=== PATIENT | male | born 2000 | race Caucasian/White ===

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

== ENCOUNTER 2019-11-03 17:54 | Emergency (ER) | payer MEDICAID, OTHER ==
[~2019-11-03] VITALS: Ht 180.3 cm; Wt 69.6 kg
[2019-11-03] MEDS ORDERED: normal saline 1000ML IV soln IVB ONE (18:00)
[2019-11-03] MEDS ORDERED: ondansetron/PF 4mg/2ml inj IV ONE (18:00)
[2019-11-03] MEDS: morphine 4 MG/ML inj SYRINge IV PRN ×2 (18:19→20:33)
[2019-11-03 18:28] LABS: BASOPHILS # (AUTO) 0.1 X10'3 (0-0.2); BASOPHILS % (AUTO) 0.5 % (0-1); EOSINOPHILS # (AUTO) 0.1 X10'3 (0-0.9); HEMATOCRIT 45.9 % (42.0-52.0); LYMPHOCYTES # (AUTO) 3.7 X10'3 (1.1-4.8); LYMPHOCYTES % (AUTO) 27.4 % (21-51); MEAN CORPUSCULAR HGB CONC 34.9 g/dL (33.0-36.5); MEAN PLATELET VOLUME 9.2 FL (7.4-10.4); MONOCYTES # (AUTO) 0.8 X10'3 (0-0.9); MONOCYTES % (AUTO) 5.7 % (2-12); NEUTROPHILS # (AUTO) 8.8 X10'3 (1.8-7.7); NEUTROPHILS % (AUTO) 65.4 % (42-75); PLATELET COUNT 310 X10'3 (140-440); RED BLOOD COUNT 5.33 X10'6 (4.70-6.10); RED CELL DISTRIBUTION WIDTH 13.4 % (11.5-14.5); WHITE BLOOD COUNT 13.4 X10'3 (4.5-11.0)
[2019-11-03] MEDS ORDERED: ketorolac trometh. 30mg/ml inj. IV ONE (19:20)
[2019-11-03 20:43] VITALS: BP 139/80
== END 2019-11-03 20:47 | disposition home or self-care (01) ==
LOC: ER 17:55
DX: S06.0X1A Concussion with loss of consciousness of 30 minutes or less, initial encounter (principal); S52.611A Displaced fracture of right ulna styloid process, initial encounter for closed fracture; S52.511A Displaced fracture of right radial styloid process, initial encounter for closed fracture; S00.03XA Contusion of scalp, initial encounter; S00.81XA Abrasion of other part of head, initial encounter; S60.512A Abrasion of left hand, initial encounter; S60.511A Abrasion of right hand, initial encounter; R42 Dizziness and giddiness; M25.511 Pain in right shoulder; F17.200 Nicotine dependence, unspecified, uncomplicated; F12.90 Cannabis use, unspecified, uncomplicated; Z98.890 Other specified postprocedural states; V19.9XXA Pedal cyclist (driver) (passenger) injured in unspecified traffic accident, initial encounter; Y93.89 Activity, other specified; Y92.89 Other specified places as the place of occurrence of the external cause; Y99.8 Other external cause status
CPT/HCPCS: 29125; 36415; 70450; 70486; 72125; 73030; 73110; 85025; 85610; 96361; 96374; 96375; 96376; 99291; J1885; J2270; J2405; J7030; 29105

== ENCOUNTER 2019-11-05 13:46 | Emergency (ER) | payer SELFPAY ==
[~2019-11-05] VITALS: Ht 180.3 cm; Wt 65.0 kg
[2019-11-05 14:05] VITALS: BP 150/98
--- NOTE | 2019-11-05 14:16 | NUR ---
[employer], IN TRIAGE 2 TO REPLACE SPLINT
--- NOTE | 2019-11-05 15:43 | NUR ---
patient seen and assessed by provider.
== END 2019-11-05 14:30 | disposition home or self-care (01) ==
LOC: ER 13:47
DX: S62.101D Fracture of unspecified carpal bone, right wrist, subsequent encounter for fracture with routine healing (principal); F17.210 Nicotine dependence, cigarettes, uncomplicated; F12.90 Cannabis use, unspecified, uncomplicated; Z98.890 Other specified postprocedural states; V89.2XXD Person injured in unspecified motor-vehicle accident, traffic, subsequent encounter
CPT/HCPCS: 29125; 99283

== ENCOUNTER 2020-03-12 21:52 | Emergency (ER) | payer MEDICAID, OTHER ==
[~2020-03-12] VITALS: Ht 180.3 cm; Wt 66.8 kg
[2020-03-12 22:05] VITALS: BP 134/90
[2020-03-12] MEDS ORDERED: TETanus/Pertussis (Acell)/Diphther VAC/PF (Tdap-Adult) 0.5ml syringe IMVAC ONE (22:20)
[2020-03-12] MEDS ORDERED: bacitracin 15gm ointment TP ONE (22:20)
[2020-03-12] MEDS ORDERED: morphine 4 MG/ML inj SYRINge IV ONE (22:20)
[2020-03-12] MEDS ORDERED: ondansetron/PF 4mg/2ml inj IV ONE (22:20)
[2020-03-12] MEDS ORDERED: iohexol 300mg/ml 100ml inj. ONE (22:21)
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
--- NOTE | 2020-03-12 22:38 | NUR ---
FAST EXAMINE WAS NEGATIVE PER Annie HUNTER PA, PT TO CT
[2020-03-12 22:59] LABS: BASOPHILS % (AUTO) 0.2 % (0-1); EOSINOPHILS # (AUTO) 0.1 X10'3 (0-0.9); EOSINOPHILS % (AUTO) 0.8 % (0-6); HEMATOCRIT 45.2 % (42.0-52.0); HEMOGLOBIN 15.6 g/dl (14.0-17.9); LYMPHOCYTES # (AUTO) 2.7 X10'3 (1.1-4.8); LYMPHOCYTES % (AUTO) 17.7 % (21-51); MEAN CORPUSCULAR HEMOGLOBIN 30.2 PG (27.0-31.0); MEAN CORPUSCULAR HGB CONC 34.6 g/dL (33.0-36.5); MEAN CORPUSCULAR VOLUME 87.2 FL (78-98); MEAN PLATELET VOLUME 9.3 FL (7.4-10.4); MONOCYTES # (AUTO) 0.7 X10'3 (0-0.9); MONOCYTES % (AUTO) 4.7 % (2-12); NEUTROPHILS # (AUTO) 11.7 X10'3 (1.8-7.7); NEUTROPHILS % (AUTO) 76.6 % (42-75); PLATELET COUNT 274 X10'3 (140-440); RED BLOOD COUNT 5.18 X10'6 (4.70-6.10); RED CELL DISTRIBUTION WIDTH 13.3 % (11.5-14.5); WHITE BLOOD COUNT 15.3 X10'3 (4.5-11.0)
[2020-03-12 23:03] LABS: ALANINE AMINOTRANSFERASE 29 U/L (12-78); ALBUMIN 4.5 G/DL (3.4-5.0); ALBUMIN/GLOBULIN RATIO 1.3 (1.1-1.5); ALKALINE PHOSPHATASE 127 IU/L (20-180); ANION GAP 7 (8-16); ASPARTATE AMINO TRANSFERASE 39 U/L (10-37); BILIRUBIN,TOTAL 0.5 MG/DL (0.1-1.0); BLOOD UREA NITROGEN 18 MG/DL (7-18); CHLORIDE 104 MMOL/L (99-107); GLUCOSE 128 MG/DL (70-104); POTASSIUM 4.4 MMOL/L (3.5-5.1); SODIUM 139 MMOL/L (135-145); TOTAL CARBON DIOXIDE 27.9 MMOL/L (24-32); TOTAL PROTEIN 7.9 G/DL (6.4-8.2); eGFR 77 ML/MIN
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
[2020-03-12 23:06] LABS: ETHANOL < 0.010 GM/DL (0.0-0.010); TROPONIN I < 0.04 NG/ML (0.0-0.05)
--- NOTE | 2020-03-12 23:11 | NUR ---
PT IS REFUSING TO HAVE ABRASIONS CLEANED, GAVE PT BACTRICIN TO APPLY AT HOME
[2020-03-12] MEDS ORDERED: acetaminophen 325mg tablet PO ONE (23:55)
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
== END 2020-03-13 00:17 | disposition home or self-care (01) ==
LOC: ER 21:53
DX: S80.212A Abrasion, left knee, initial encounter (principal); S80.211A Abrasion, right knee, initial encounter; S50.311A Abrasion of right elbow, initial encounter; S50.312A Abrasion of left elbow, initial encounter; S50.812A Abrasion of left forearm, initial encounter; S06.0X0A Concussion without loss of consciousness, initial encounter; S60.211A Contusion of right wrist, initial encounter; S16.1XXA Strain of muscle, fascia and tendon at neck level, initial encounter; S39.012A Strain of muscle, fascia and tendon of lower back, initial encounter; S00.83XA Contusion of other part of head, initial encounter; S29.012A Strain of muscle and tendon of back wall of thorax, initial encounter; T14.8XXA Other injury of unspecified body region, initial encounter; F12.90 Cannabis use, unspecified, uncomplicated; V19.9XXA Pedal cyclist (driver) (passenger) injured in unspecified traffic accident, initial encounter; Y93.89 Activity, other specified; Y92.89 Other specified places as the place of occurrence of the external cause; Y99.8 Other external cause status
CPT/HCPCS: 36415; 70450; 71260; 72125; 73110; 74177; 80053; 80320; 84484; 85025; 93005; 99285; Q9967

== ENCOUNTER 2021-03-02 13:35 | Emergency (ER) | payer MEDICAID ==
[~2021-03-02] VITALS: Ht 180.3 cm; Wt 70.5 kg
[2021-03-02 14:57] VITALS: BP 117/66
== END 2021-03-02 15:00 | disposition home or self-care (01) ==
LOC: ER 13:36
DX: S80.02XA Contusion of left knee, initial encounter (principal); M25.562 Pain in left knee; F12.90 Cannabis use, unspecified, uncomplicated; Z98.890 Other specified postprocedural states; X58.XXXA Exposure to other specified factors, initial encounter; Y93.89 Activity, other specified; Y92.89 Other specified places as the place of occurrence of the external cause; Y99.8 Other external cause status
CPT/HCPCS: 73564; 99283

== ENCOUNTER 2022-05-15 09:58 | Emergency (ER) | payer MEDICAID ==
[~2022-05-15] VITALS: Ht 180.3 cm; Wt 70.0 kg
[2022-05-15 10:03] VITALS: BP 127/82
[2022-05-15] MEDS ORDERED: cephalexin 250mg capsule PO ONE (11:30)
[2022-05-15] MEDS ORDERED: CEPH500C2 PO (11:33)
== END 2022-05-15 11:48 | disposition home or self-care (01) ==
LOC: ER 09:59
DX: L02.512 Cutaneous abscess of left hand (principal); F12.90 Cannabis use, unspecified, uncomplicated
CPT/HCPCS: 26010; 99283; A6222; A6258

== ENCOUNTER 2024-06-29 23:29 | Emergency (ER) | payer MEDICAID ==
[~2024-06-29] VITALS: Ht 180.3 cm; Wt 70.9 kg
[2024-06-29 23:33] VITALS: BP 122/84; PULSE 109; RESP 16; TEMP 98; O2SAT 100
== END 2024-06-30 04:02 | disposition left against medical advice (07) ==
LOC: ER 23:30
DX: M79.672 Pain in left foot (principal); Z53.21 Procedure and treatment not carried out due to patient leaving prior to being seen by health care provider
CPT/HCPCS: 73630